=== PATIENT | male | born 1970 | race African-American/Black ===

== ENCOUNTER 2018-09-05 10:18 | Emergency (ER) | payer OTHER ==
[~2018-09-05] VITALS: Ht 180.3 cm; Wt 81.8 kg
[2018-09-05 10:24] VITALS: BP 135/93
== END 2018-09-05 11:33 | disposition home or self-care (01) ==
LOC: ED 11:16
DX: H10.31 Unspecified acute conjunctivitis, right eye (principal)
CPT/HCPCS: 99283